=== PATIENT | male | born 1960 | race Caucasian/White ===

== ENCOUNTER 2021-12-15 10:26 | Inpatient (IN) | payer OTHER ==
[~2021-12-15] VITALS: Ht 180.3 cm; Wt 92.2 kg
--- NOTE | ~2021-12-15 | EMS ---
[facility] [address] [place] [address] EMS Patient Care Report Name: MIC GORDON Room #: 445-P ADM IN M.R.#: [id number] Admission: 12/15/21 Attend Phys: María Demarco Discharge: Date of : 60 Report #: [id number] THIS REPORT FOR: //name// Report Transmitted: 12/15/2021 23:23 EMS Care Summary [place], [place]/[facility] Incident [id number] @ 12/15/2021 09:52 Incident Location [address] [place] [address] 314-B Patient MIC GORDON Male, 61 Years 1960 Patient Address Patient History Diabetes,Hypertension (HTN),Hyperlipidemia,Gastro-Esophageal Reflux Disease (GERD),Bipolar II Disorder,Schizophrenia,Anxiety, Chief Complaint R hip pain/fall Disposition Transported No Lights/[place] Dispatch Reason Falls Transported To [facility] Narrative staff called for an unwitnessed fall by pt. pt was found lying on floor in his room. staff evaluated pt and lifted him back into a wheelchair. pt has multiple c/o pain including, hd, R hip, L shoulder, neck and "hair". no obv trauma noted. pt denies LOC. he is normally ambulatory w/o assist, he now will hardly stand and walk a few feet to cot. pt has slurred speech, which staff states is new today. he normally holds a confused conversation. pt to be eval at [facility]. pt to cot, tx as listed in flow chart. no changes enroute, report to staff on arrival. [facility] [address] [place] [address] EMS Patient Care Report Name: MIC GORDON Room #: 445-P ADM IN M.R.#: [id number] Admission: 12/15/21 Attend Phys: María Demarco Discharge: Date of : 60 Report #: [id number] Initial Vitals @10:08P: 122,R: 18,BP: 153/91,GCS: 13,Glucose: 113,SpO2: 96,Revised Trauma: 12, Assessments @10:00MENTAL:Confused,SKIN:No Abnormalities,HEENT:Head/Face: Other,Eyes: Left Pupil: 3-mm,Eyes: Right Pupil: 3-mm,LUNG SOUNDS:ABDOMEN:PELVIS//GI:EXTREMITIES:Left Arm: Other,Right Leg: Other,PULSE:Radial: 2+ Normal,NEURO:Slurred Speech, Impression Injury of Hip Procedures @10:00 ALS Assessment Response: Unchanged @10:12 IV Therapy - Saline Lock 10cc (20 ga) Site: Forearm-Right Response: UnchangedSucceeded @10:11 3-Lead ECGSucceeded @10:02 Stretcher Response: Unchanged Timeline 09:50,Call Received 09:50,Dispatch Notified 09:52,Dispatched 09:53,En Route 09:57,On Scene 10:00,At Patient 10:00,ALS Assessment,Response: Unchanged 10:02,Stretcher,Response: Unchanged 10:08,BP: 153/91 M,PULSE: 122,RR: 18 R,SPO2: 96 Ox,ETCO2: ,B,PAIN: ,GCS: 13, 10:11,3-Lead ECG,Succeeded, 10:12,IV Therapy - Saline Lock 10cc 20 ga Site: Forearm-Right,Response: UnchangedSucceeded, 10:15,Depart Scene 10:23,At Destination 11:04,Call Closed Disclaimer v1.1 Copyright 2021 [employer] This EMS Care Summary contains data elements from the applicable legal record (which may be displayed differently). It is designed to provide pertinent information for the following purposes: continuity of care, clinical quality, and state data reporting. The complete legal record is available to ED staff and administrators of the receiving hospital in [employer] Patient Tracker. All data is provided "as is."
--- NOTE | ~2021-12-15 | EMS ---
[facility] [address] [place] [address] EMS Patient Care Report Name: MIC GORDON Room #: 445-P DIS IN M.R.#: [id number] Admission: 12/15/21 Attend Phys: María Demarco Discharge: 12/16/21 Date of : 60 Report #: [id number] THIS REPORT FOR: //name// Report Transmitted: 12/17/2021 14:42 EMS Care Summary [place], [place]/[facility] Incident [id number] @ 12/15/2021 09:52 Incident Location [id number] [place], [place] [address] 314-B Patient MIC GORDON Male, 61 Years 1960 Patient Address Patient History Diabetes,Hypertension (HTN),Hyperlipidemia,Gastro-Esophageal Reflux Disease (GERD),Bipolar II Disorder,Schizophrenia,Anxiety, Chief Complaint R hip pain/fall Disposition Transported No Lights/[place] Dispatch Reason Falls Transported To [facility] Narrative staff called for an unwitnessed fall by pt. pt was found lying on floor in his room. staff evaluated pt and lifted him back into a wheelchair. pt has multiple c/o pain including, hd, R hip, L shoulder, neck and "hair". no obv trauma noted. pt denies LOC. he is normally ambulatory w/o assist, he now will hardly stand and walk a few feet to cot. pt has slurred speech, which staff states is new today. he normally holds a confused conversation. pt to be eval at [facility]. pt to cot, tx as listed in flow chart. no changes enroute, report to staff on arrival. [facility] [address] [place] [address] EMS Patient Care Report Name: MIC GORDON Room #: 445-P DIS IN M.R.#: [id number] Admission: 12/15/21 Attend Phys: María Demarco Discharge: 12/16/21 Date of : 60 Report #: [id number] Initial Vitals @10:08P: 122,R: 18,BP: 153/91,GCS: 13,Glucose: 113,SpO2: 96,Revised Trauma: 12, Assessments @10:00MENTAL:Confused,SKIN:No Abnormalities,HEENT:Head/Face: Other,Eyes: Left Pupil: 3-mm,Eyes: Right Pupil: 3-mm,LUNG SOUNDS:ABDOMEN:PELVIS//GI:EXTREMITIES:Left Arm: Other,Right Leg: Other,PULSE:Radial: 2+ Normal,NEURO:Slurred Speech, Impression Injury of Hip Procedures @10:00 ALS Assessment Response: Unchanged @10:12 IV Therapy - Saline Lock 10cc (20 ga) Site: Forearm-Right Response: UnchangedSucceeded @10:11 3-Lead ECGSucceeded @10:02 Stretcher Response: Unchanged Timeline 09:50,Call Received 09:50,Dispatch Notified 09:52,Dispatched 09:53,En Route 09:57,On Scene 10:00,At Patient 10:00,ALS Assessment,Response: Unchanged 10:02,Stretcher,Response: Unchanged 10:08,BP: 153/91 M,PULSE: 122,RR: 18 R,SPO2: 96 Ox,ETCO2: ,B,PAIN: ,GCS: 13, 10:11,3-Lead ECG,Succeeded, 10:12,IV Therapy - Saline Lock 10cc 20 ga Site: Forearm-Right,Response: UnchangedSucceeded, 10:15,Depart Scene 10:23,At Destination 11:04,Call Closed Disclaimer v1.1 Copyright 2021 [employer] This EMS Care Summary contains data elements from the applicable legal record (which may be displayed differently). It is designed to provide pertinent information for the following purposes: continuity of care, clinical quality, and state data reporting. The complete legal record is available to ED staff and administrators of the receiving hospital in [employer] Patient Tracker. All data is provided "as is."
[2021-12-15 10:28] VITALS: BP 141/87
[2021-12-15 10:53] LABS: ABSOLUTE NEUTROPHILS 7.7 thou/uL (1.4-8.2); BASOPHILS 0.3 % (0.0-2.0); EOSINOPHILS 5.1 % (0.0-3.0); HEMATOCRIT 43.9 % (42.0-52.0); HEMOGLOBIN 14.6 gm/dL (14.0-18.0); LYMPHOCYTES 13.4 % (24.0-44.0); MCHC 33.3 g/dL (28.0-37.0); MCV 90.1 fL (80.0-100.0); MONOCYTES 5.6 % (1.0-8.0); PLATELET COUNT 241 thou/uL (150-400); POLYS 75.6 % (36.0-66.0); RBC 4.87 mil/uL (4.50-6.00); RDW 14.3 % (10.5-14.5); WBC 10.2 thou/uL (4.0-11.0)
[2021-12-15 11:06] LABS: CALCIUM 10.4 mg/dL (8.5-10.1); POTASSIUM 4.1 mmol/L (3.5-5.1)
[2021-12-15 11:08] LABS: APTT 25.8 Seconds (24.5-32.8); INR 1.02; PROTIME 11.1 Seconds (10.5-12.1)
[2021-12-15 11:16] LABS: ALBUMIN 3.9 g/dL (3.4-5.0); MAGNESIUM 1.7 mg/dL (1.8-2.4); TOTAL BILIRUBIN 0.6 mg/dL (0.2-1.0); TOTAL PROTEIN 7.2 g/dL (6.4-8.2)
[2021-12-15 11:52] LABS: URINE BILIRUBIN NEGATIVE (Negative); URINE BLOOD TRACE (Negative); URINE CLARITY CLEAR; URINE COLOR YELLOW; URINE GLUCOSE-RANDOM* NEGATIVE (Negative); URINE KETONES NEGATIVE (Negative); URINE LEUKOCYTES-REFLEX NEGATIVE (Negative); URINE NITRITE-REFLEX NEGATIVE (Negative); URINE PROTEIN (DIPSTICK) NEGATIVE (Negative); URINE UROBILINOGEN 0.2 E.U./dl (0.2-1.0)
[2021-12-15 12:00] LABS: AMP/METHAMP Negative (Negative); BARBITURATES Negative (Negative); BENZODIAZEPINES Negative (Negative); COCAINE Negative (Negative); METHADONE Negative (Negative); OPIATES Negative (Negative); PCP Negative (Negative)
--- NOTE | 2021-12-15 13:09 | EKG ---
[place] [address] [place] [address] ELECTROCARDIOGRAM REPORT Name: MIC GORDON [facility]ENTER[facility]winiAshw[facility]#: [id number] Admission: 12/15/21 Attend Phys: Discharge: Date of : 60 Report #: [id number] [facility] ED Test Date: 2021-12-15 Test Time: 11:37:34 Pat Name: IMC GORDON Department: Room: Gender: M [employer] Architect: TRACEY : 1960 Requested By: Shreyas El Order Number: [id number] MD: Lucho Moore Measurements Intervals [place] Rate: 97 P: 47 WY: 158 QRS: 0 QRSD: 86 T: 77 QT: 361 QTc: 459 Interpretive Statements Sinus rhythm RSR' in V1 or V2, right VCD Borderline T abnormalities No previous ECG available for comparison Electronically Signed On 12-15-2021 13:08:43 [employer] by Lucho Moore [email or web address] <ELECTRONICALLY SIGNED> By: Lucho Moore MD, [facility] 12/15/21 1308 [id number] Lucho Moore MD, FACC /EPI
[2021-12-15 14:24] VITALS: BP 120/88
[2021-12-15 15:28] VITALS: BP 136/90
[2021-12-15 16:01] LABS: CALCIUM 10.1 mg/dL (8.5-10.1); PHOSPHORUS 3.6 mg/dL (2.5-4.9)
--- NOTE | 2021-12-15 18:23 | NUR ---
Pt transferred to unit from ED. Pt has slurred speech and is difficult to understand when he speaks. Denies pain. Impulsive and tries to get out of bed on several occassions. Per ED nurse, "no information could be obtained from pt's facility about patient, because his nurse is on vacation." IVF infusing. Call light within reach. Will continue to monitor.
[2021-12-15 21:50] VITALS: BP 126/91
--- NOTE | 2021-12-16 05:50 | NUR ---
PT LYING IN BED. VOIDING PER URINAL AND INCONTINENT. RESTLESS NIGHT. FREQUENT OBSERVATION.
[2021-12-16 09:25] VITALS: BP 134/89
[2021-12-16] MEDS ORDERED: FAMOTIDINE 20 M20 MG PO (10:33)
[2021-12-16] MEDS ORDERED: LITHIUM CARBON300 M3 PO ×2 (10:35→10:36)
[2021-12-16] MEDS ORDERED: METFORMIN HCL500 M3 PO (10:37)
[2021-12-16] MEDS ORDERED: REGLAN10 MG PO (10:37)
[2021-12-16] MEDS ORDERED: FAMOTIDINE20 MG PO (10:39)
[2021-12-16] MEDS ORDERED: PROTONIX40 M2 PO (10:39)
[2021-12-16] MEDS ORDERED: PROPRANOLOL 1010 M1 PO (10:41)
[2021-12-16] MEDS ORDERED: GLYCOPYRROLATE 11 MG PO (10:47)
[2021-12-16] MEDS ORDERED: BACTRIM DS TAB1 EAC1 PO (11:12)
--- NOTE | 2021-12-16 12:38 | NUR ---
PT WAS BROUGHT TO THE ER OVERNIGHT FROM [facility] AFTER A FALL AT FACILITY TO BE CHECKED. IS DISCHARGING PT BACK TO FACILITY TODAY. NOTIFIED THE DON SENIOR SOFTWARE ANALYST AT FACILITY AND SHE IS ABLE TO ACCEPT PT BACK TODAY. LEFT MSG PT'S PA GUARDIAN KISHAN RAMOS OF [place] TODAY BACK TO FACILITY. FAXED DC ORDERS/SUMMARY RECEIVED CONFIRMATION AND ARRANGED TRANSPORT WITH [facility] FOR [phone]. NOTIFIED FACILITY AND UNIT OF TIME OF TRANSPORT. CHART COPY PER US. RN TO CALL REPORT TO [phone].
[2021-12-17 20:06] LABS: GLOBULIN TOTAL 2.6 g/dL (2.2-3.9); M-SPIKE Not Observed g/dL (Not Observed)
== END 2021-12-16 12:55 | DRG 72 ==
LOC: ER 10:26 → EROBS 13:23 → 4S 14:57
PROVIDERS: Emergency Medicine; ADMIT Hospitalist; ATTEND Hospitalist
DX: G93.41 Metabolic encephalopathy (principal); E10.9 Type 1 diabetes mellitus without complications; J45.909 Unspecified asthma, uncomplicated; K59.00 Constipation, unspecified; K21.9 Gastro-esophageal reflux disease without esophagitis; E78.5 Hyperlipidemia, unspecified; F32.9 Major depressive disorder, single episode, unspecified; F41.9 Anxiety disorder, unspecified; E83.52 Hypercalcemia; Z20.822 Contact with and (suspected) exposure to COVID-19
CPT/HCPCS: 10100